=== PATIENT | female | born 1980 | race African-American/Black ===

== ENCOUNTER 2017-01-17 23:47 | Emergency (ER) | payer MEDICAID, OTHER ==
[~2017-01-17] VITALS: Ht 167.6 cm; Wt 63.0 kg
[2017-01-18] MEDS ORDERED: KETOROLAC 30MG/ML VIAL IV STA (00:27)
[2017-01-18] MEDS ORDERED: MORPHINE SULFATE 4 MG/ML CPJ (NOT FOR IM USE) IV STA (00:27)
[2017-01-18] MEDS ORDERED: ONDANSETRON HCL 4MG/2ML VIAL IV STA (00:27)
[2017-01-18] MEDS ORDERED: SODIUM CHLORIDE 0.9% 1,000 ML IV ONE (00:27)
[2017-01-18] MEDS ORDERED: KETAMINE HCL 50 MG/ML 10ML IV ONE (00:30)
[2017-01-18] MEDS ORDERED: FENTANYL CITRATE/PF 50MCG/ML 2ML VIAL IV ONE (00:30)
[2017-01-18] MEDS ORDERED: MIDAZOLAM HCL 2 MG/2 ML VIAL IV ONE (00:30)
[2017-01-18 03:18] VITALS: BP 156/90
== END 2017-01-18 03:22 | disposition home or self-care (01) ==
LOC: ER 23:47
DX: S43.004A Unspecified dislocation of right shoulder joint, initial encounter (principal); F12.10 Cannabis abuse, uncomplicated; X58.XXXA Exposure to other specified factors, initial encounter; Y93.89 Activity, other specified; Y92.89 Other specified places as the place of occurrence of the external cause
CPT/HCPCS: 23650; 73030; 81025; 96361; 96374; 96375; 99152; 99285; J1885; J2250; J2270; J2405; J3010; J3490; J7030; Z7610; L3670